=== PATIENT | male | born 1985 | race Caucasian/White ===

== ENCOUNTER 2023-11-18 03:04 | Emergency (ER) | payer OTHER ==
[~2023-11-18] VITALS: Ht 180.3 cm; Wt 85.0 kg
[2023-11-18 03:08] VITALS: O2SAT 96
[2023-11-18] MEDS ORDERED: LORA-250 MT (04:54)
[2023-11-18] MEDS: DIAZEPAM 2 MG TABLET PO ONE (04:55)
[2023-11-18 05:30] VITALS: BP 124/88; PULSE 111; RESP 18; TEMP 98.6
[2023-11-18] MEDS: NEOMYCIN/BACITRACIN/POLYMYXIN OINT 14GM TOP ONE (05:40)
== END 2023-11-18 05:43 | disposition home or self-care (01) ==
LOC: ER 03:04
DX: S80.211A Abrasion, right knee, initial encounter (principal); F43.9 Reaction to severe stress, unspecified; F10.129 Alcohol abuse with intoxication, unspecified; F19.90 Other psychoactive substance use, unspecified, uncomplicated; W01.0XXA Fall on same level from slipping, tripping and stumbling without subsequent striking against object, initial encounter; Y93.89 Activity, other specified; Y92.89 Other specified places as the place of occurrence of the external cause; Y99.8 Other external cause status
CPT/HCPCS: 99283